=== PATIENT | male | born 1975 | race Two or more races ===

== ENCOUNTER 2024-07-14 08:29 | Outpatient (REF) | payer MEDICAID, SELFPAY ==
--- OUTSIDE RECORDS SUMMARY | 2024-07-14 08:40 | XMS_ITS | Encounter Summary ---
Author Organization [employer] Address [address] [facility] [address] [place] [address] Care Team Providers Care Public Address System Installer Name Role Phone Elmer Mary MD Primary Care Prov ider Reason for Visit * Reason Onset Date Comments Nurse Triage 11/12/2022 Encounter Details Date Type Department Care Team ([facility] st Contact Info) Description 11/12/2022 Telephone [facility] CHC MED & PEDS [address] [place], [place] [phone] Elmer Mary MD [address] [place] [address] Nurse Triage Social History Tobacco Use Types Packs/Day Years Used Date Smoking Tobacco: Never Assessed Sex and Gender Information Value Date Recorded Sex Assigned at Male 03/16/2022 10:29 AM EDT Legal Sex Male 10:29 AM EDT Gender Identity Male 03/16/2022 10:29 AM EDT Sexual Orientation Straight 03/16/2022 10 :29 AM EDT documented as of this encounter Miscellaneous Notes * Telephone Encounter - Flori Hitchcock RN - 11/12/2022 1:52 PM EDT Call to Audie Roberts, reports wanting to have optho referral. Per pt having blurred visionand difficulty with reading. Sx onset was 2 month ago. Per pt having blurred vision with reading aswell as distance. No eye pain, injury, headache or flashes of light. Per pt has never had vision issues in past. Pt advised of disposition, already has upcoming appt with PCP. Pt advised will send referral request to PCP to review. Pt to be contacted if referral placed or if needs to keep appt first. Pt advised to return call if eye pain, double vision or loss of vision. Pt agrees Future Appointments Date Time Provider Department Center 12/07/2022 9:00 AM Elmer Roberts MD [facility] Protocol Used: Vision Loss or Change (Adult) Protocol-Based Disposition: See in Office or Video Visit within 2 Weeks Video visit offer not recorded Positive Triage Question: * Blurred vision or visual changes and gradual onset (e.g., weeks, months) * All higher-acuity triage questions were negative * Telephone Encounter - Darshana Irby - 11/12/2022 1:49 PM EDT Symptom: Vision Loss or Change Outcome: Schedule an urgent appointment (within 1 hour) or talk to a nurse or provider soon Reason: Getting worse, requesting referral The caller accepted this outcome Please contact pt at [phone] (Lithuanian speaker) documented in this encounter Plan of Treatment Upcoming Encounters Date Type Department Care Team (Late st Contact Info) Description 08/02/2024 3:00 PM EDT Office Visit [facility] ADULT DENTAL [address] [place] [address] José Miguel Stahl documented as of this encounter Visit Diagnoses Not on filedocumented in this encounter Care Teams Public Address System Installer Relationship Specialty Start Date End Date Elmer Mary MD [address] [place] [address] PCP - General Internal Medicine 07/28/19 documented as of this encounter
--- OUTSIDE RECORDS SUMMARY | 2024-07-14 08:40 | XMS_ITS | Encounter Summary ---
Author Organization [employer] Address [address] 7[address] [place] [address] Care Team Providers Care Dress Draper Name Role Phone Elmer Mary MD Primary Care Prov ider Encounter Details Date Type Department Care Team (Latest Contact Info) Description 06/15/2024 Travel Social History Tobacco Use Types Packs/Day Years Used Date Smoking Tobacco: Never Passive Smoke Exposure: Never Smokeless Tobacco: Never Alcohol Use Standard Drinks/Week Comments Yes 3 (1 standard drink = 0.6 oz pur e alcohol) Depression Answer Date Recorded Patient Health Questionnaire-9 Score 16 09/01/2023 Patient Health Questionnaire-9 Score 16 09/01/2023 Last PHQ-9: Questionnaire Data Not on file 0 09/01/2023 Housing Stability Answer Date Recorded What is your housing situation today? I have simeon peterson 03/09/[address] you li ve. Do you have problems with any of the following? None of the above 03/09/2023 Food Insecurity Answer Date Recorded Within the past 12 months, y ou worried that your food would run out before you got money to buy more: Never True 03/09/2023 Within the past 12 months,th e food you bought just didn't last and you didn't have enough money to get more: Never True Transportation Answer Date Recorded In the past 12 months, has l ack of transportation kept you from medical appts, meetings, work or from getting things needed for daily living? No 03/09/2023 Utilities Answer Date Recorded In the past 12 months, has t he electric, gas, oil or water company threatened to shut off services in your home? No 03/09/2023 Depression Answer Date Recorded Patient Health Questionnaire-2 Score 4 09/01/2023 Sex and Gender Information Value Date Recorded Sex Assigned at Male 03/16/2022 10:29 AM EDT Legal Sex Male 10:29 AM EDT Gender Identity Male 03/16/2022 10:29 AM EDT Sexual Orientation Straight 03/16/2022 10 :29 AM EDT documented as of this encounter Plan of Treatment Upcoming Encounters Date Type Department Care Team (Late st Contact Info) Description 08/02/2024 3:00 PM EDT Office Visit [facility] ADULT DENTAL [address] [place] [address] José Miguel Stahl documented as of this encounter Visit Diagnoses Not on filedocumented in this encounter Additional Health Concerns Assessment Noted Time PHQ-9 Depression Total Score: 16 024 3:37 PM EDT documented as of this encounter Care Teams Dress Draper Relationship Specialty Start Date End Date Elmer Mary MD [address] [place] [address] PCP - General Internal Medicine 07/28/19 documented as of this encounter
--- OUTSIDE RECORDS SUMMARY | 2024-07-14 08:40 | XMS_ITS | Encounter Summary ---
Author Organization [employer] [facility] Address [address] [place] [address] [address] [address] Care Team Providers Care Health Consultant Name Role Phone Elmer Mary MD Primary Care Prov ider Reason for Referral * Consultation (Routine) - Authorized Specialty Diagnoses / Procedures Referred By Ernesto bedolla Referred To Contact Behavioral Health Diagnoses Anxiety Elmer Mary MD [address] [place] [address] Phone: tel: fax: Referral ID Status Reason Start Date Expiration Date Visits Requested Visits Authorized [id number] Authorized Specialty Services Required 07/13/2024 07/13/2025 1 1 * Consultation (Routine) - Authorized Specialty Diagnoses / Procedures Referred By Ernesto bedolla Referred To Contact Gastroenterology Diagnoses Gastroenteropathy Elmer Mary MD [address] [place] [address] Phone: tel: fax: [facility] [address] [place], [place] Phone: tel: fax: Referral ID Status Reason Start Date Expiration Date Visits Requested Visits Authorized [id number] Authorized Specialty Services Required 07/13/2024 07/13/2025 1 1 Encounter Details Date Type Department Care Team (Late st Contact Info) Description 07/12/2024 3:15 PM EST Telemedicine [facility] CHC MED & PEDS [address] [place] [address] Elmer Mary MD [address] [place] [address] Anxiety (Primary Dx); Major depressive disorder with psychotic features (CMS/HCC); Gastroenteropathy Social History Tobacco Use Types Packs/Day Years Used Date Smoking Tobacco: Never Passive Smoke Exposure: Never Smokeless Tobacco: Never Alcohol Use Standard Drinks/Week Comments Yes 3 (1 standard drink = 0.6 oz pur e alcohol) Depression Answer Date Recorded Patient Health Questionnaire-9 Score 3 07/12/2024 Patient Health Questionnaire-9 Score 3 07/12/2024 Last PHQ-9: Questionnaire Data Not on file 0 07/12/2024 Housing Stability Answer Date Recorded What is your housing situation today? I have simeon peterson 07/12/[address] you li ve. Do you have problems with any of the following? None of the above 07/12/2024 Food Insecurity Answer Date Recorded Within the past 12 months, y ou worried that your food would run out before you got money to buy more: Never True 07/12/2024 Within the past 12 months,th e food you bought just didn't last and you didn't have enough money to get more: Never True Transportation Answer Date Recorded In the past 12 months, has l ack of transportation kept you from medical appts, meetings, work or from getting things needed for daily living? No 07/12/2024 Utilities Answer Date Recorded In the past 12 months, has t he electric, gas, oil or water company threatened to shut off services in your home? No 07/12/2024 Depression Answer Date Recorded Patient Health Questionnaire-2 Score 2 07/12/2024 Internet Access Answer Date Recorded Internet Access Q1 Yes 07/12/2024 Internet Access Q2 Not on file 07/12/2024 Sex and Gender Information Value Date Recorded Sex Assigned at Male 03/16/2022 10:29 AM EDT Legal Sex Male 10:29 AM EDT Gender Identity Male 03/16/2022 10:29 AM EDT Sexual Orientation Straight 03/16/2022 10 :29 AM EDT documented as of this encounter Progress Notes * Elmer Roberts MD - 07/12/2024 3:15 PM EST Subjective Patient ID: Audie Roberts is a 48 y.o. male who presents for No chief complaint on file.. Anxiety Presents for follow-up visit. Symptoms include compulsions, excessive worry, nervous/anxious behavior and obsessions. Patient reports no suicidal ideas. Review of Systems Psychiatric/Behavioral: Negative for suicidal ideas. The patient is nervous/anxious. Objective Physical Exam Neurological: General: No focal deficit present. Mental Status: He is oriented to person, place, and time. Psychiatric: Mood and Affect: Mood normal. Behavior: Behavior normal. Assessment/Plan Problem List Items Addressed This Visit Major depressive disorder with psychotic features (CMS/HCC) Anxiety - Primary Relevant Orders Referral to Behavioral Health Gastroenteropathy Will refer for screening colon cancer Relevant Orders Referral to Gastroenterology CBC auto differential Comprehensive Metabolic Panel Lipid Panel, Standard Hemoglobin A1c TSH W/Reflex to FT4 Hepatitis C Antibody with Reflex to HCV, RNA, Quantitative, Real-Time PCR HIV-1/2 Antigen and Antibodies, Fourth Generation, with Reflexes documented in this encounter Miscellaneous Notes * Assessment & Plan Note - Elmer Roberts MD - 07/13/2024 12:02 PM ESTAssociated Problem(s): Gastroenteropathy Will refer for screening colon cancer documented in this encounter Plan of Treatment Upcoming Encounters Date Type Department Care Team (Late st Contact Info) Description 08/02/2024 3:00 PM EDT Office Visit [facility] ADULT DENTAL [address] [place] [address] José Miguel Stahl Scheduled Orders Name Type Priority Associated Diagnoses Orde r Schedule CBC auto differential Lab Routine Gastroenteropathy Expected: 07/13/2024 (Approximate), Expires: 07/13/2025 Comprehensive Metabolic Panel Lab Routine Gastroenteropathy Expected: 07/13/2024 (Approximate), Expires: 07/13/2025 Lipid Panel, Standard Lab Routine Gastroenteropathy Expected: 07/13/2024 (Approximate), Expires: 07/13/2025 Hemoglobin A1c Lab Routine Gastroenteropathy Expected: 07/13/2024 (Approximate), Expires: 07/13/2025 TSH W/Reflex to FT4 Lab Routine Gastroenteropathy Expected: 07/13/2024 (Approximate), Expires: 07/13/2025 Hepatitis C Antibody with Reflex to HCV, RNA, Quantitative, Real-Time PCR Lab Routine Gastroenteropathy Expected: 07/13/2024, Expires: 07/13/2025 HIV-1/2 Antigen and Antibodies, Fourth Generation, with Reflexes Lab Routine Gastroenteropathy Expected: 07/13/2024 (Approximate), Expires: 07/13/2025 Scheduled Referrals Name Type Priority Associated Diagnoses Order Schedule Referral to Gastroenterology Outpatient Referral Routine Gastroenteropathy Expected: 07/13/2024 (Approximate), Expires: 07/13/2025 Referral to Behavioral Health Outpatient Referral Routine Anxiety Expected: 07/13/2024 (Approximate), Expires: 07/13/2025 documented as of this encounter Visit Diagnoses Diagnosis Anxiety- Primary Anxiety state, unspecified Major depressive disorder with psychotic features (CMS/HCC) Gastroenteropathy Unspecified disorder of intestine documented in this encounter Additional Health Concerns Assessment Noted Time PHQ-9 Depression Total Score: 3 07/12/19 25 3:10 PM EST documented as of this encounter Care Teams Health Consultant Relationship Specialty Start Date End Date Elmer Mary MD [address] [place] [address] PCP - General Internal Medicine 07/28/19 documented as of this encounter
--- OUTSIDE RECORDS SUMMARY | 2024-07-14 08:40 | XMS_ITS | Encounter Summary ---
Author Organization [employer] Address [address] [place] [address] Care Team Providers Care Endoscopy Specialty Technician Name Role Phone Elmer Mary MD Primary Care Prov ider Encounter Details Date Type Department Care Team (Latest Contact Info) Description 07/12/2024 Travel Social History Tobacco Use Types Packs/Day [...] Description 08/02/2024 3:00 PM EDT Office Visit [facility] ADULT DENTAL [address] [place] [address] José Miguel Stahl documented as of this encounter Visit Diagnoses Not on filedocumented in this encounter Additional Health Concerns Assessment Noted Time PHQ-9 Depression Total Score: 3 07/12/19 25 3:10 PM EST documented as of this encounter Care Teams Endoscopy Specialty Technician Relationship Specialty Start Date End Date Elmer Mary MD [address] [place] [address] PCP - General Internal Medicine 07/28/19 documented as of this encounter
--- OUTSIDE RECORDS SUMMARY | 2024-07-14 08:40 | XMS_ITS | Encounter Summary ---
Author Organization [employer] Address [address] [facility] [address] [place] [address] Care Team Providers Care [employer] Open Stack Administrator Name Role Phone Elmer Mary MD Primary Care Prov ider Reason for Visit * Reason Onset Date Comments Insurance 06/15/2024 Encounter Details Date Type Department Care Team ([facility] st Contact Info) Description 06/15/2024 Telephone [facility] CHC MED & PEDS [address] [place], [place] [phone] Elmer Mary MD [address] [place] [address] Insurance Social History Tobacco Use Types Packs/Day Years [...] encounter Miscellaneous Notes * Telephone Encounter - Vita Pelletier [place] - 06/15/2024 1:52 PM EST Called pt for tele appt today with Dr. Hermosillo. Pt didn't answer, lvm to call office back. * Telephone Encounter - Maria De Jesus Damian - 06/15/2024 11:28 AM EST Outgoing call LVM for pt to please return call so FD can add insurance for slava appt today. Please akeni me if pt returns call. documented in this encounter Plan of Treatment Upcoming Encounters Date Type Department Care Team (Late st Contact Info) Description 08/02/2024 3:00 PM EDT Office Visit [facility] ADULT DENTAL [address] [place] [address] José Miguel Stahl documented as of this encounter Visit Diagnoses Not on filedocumented in this encounter Additional Health Concerns Assessment Noted Time PHQ-9 Depression Total Score: 16 024 3:37 PM EDT documented as of this encounter Care Teams [employer] Open Stack Administrator Relationship Specialty Start Date End Date Elmer Mary MD [address] [place] [address] PCP - General Internal Medicine 07/28/19 documented as of this encounter
--- OUTSIDE RECORDS SUMMARY | 2024-07-14 08:40 | XMS_ITS | Encounter Summary ---
Author Organization [employer] Address [address] [facility] [address] [place] [address] Care Team Providers Care Bridge Toll Collector Name Role Phone Elmer Mary MD Primary Care Prov ider Reason for Visit * Reason Onset Date Comments chart prep 06/14/2024 Encounter Details Date Type Department Care Team ([facility] st Contact Info) Description 06/14/2024 Telephone [facility] CHC MED & PEDS [address] [place], [place] [phone] Elmer Mary MD [address] [place] [address] chart prep Social History Tobacco Use Types Packs/Day Years [...] enough money to get more: Never True 10/ Transportation Answer Date Recorded In the past [...] Telephone Encounter - Vita Pelletier [place] - 06/14/2024 11:02 AM EST Chart Prep Labs: done Images: done Vaccines due: yes Referrals: pending appt Screenings: colonoscopy Overdue care gaps: A1C, Glucose, Sbirt, SDOH, PHQ-9 documented in this encounter Plan of Treatment Upcoming Encounters Date Type Department Care Team (Late st Contact Info) Description 08/02/2024 3:00 PM EDT Office Visit [facility] ADULT DENTAL [address] [place] [address] José Miguel Stahl documented as of this encounter Visit Diagnoses Not on filedocumented in this encounter Additional Health Concerns Assessment Noted Time PHQ-9 Depression Total Score: 16 2 024 3:37 PM EDT documented as of this encounter Care Teams Bridge Toll Collector Relationship Specialty Start Date End Date Elmer Mary MD [address] [place] [address] PCP - General Internal Medicine 07/28/19 documented as of this encounter
--- OUTSIDE RECORDS SUMMARY | 2024-07-14 08:40 | XMS_ITS | Clinical Summary ---
Author Organization [employer] Address [address] [place] [address] Care Team Providers Care Bag Machine Adjuster Name Role Phone Elmer Mary MD Primary Care Prov ider Allergies Active Allergy Reactions Criticality Noted Date Comments Sulfa Antibiotics Hives 07/28/2019 Other reaction(s): Itching Medications * This document contains information received from the source organization and may not represent a complete record from that organization. QUEtiapine (SEROquel) 50 MG tablet Take 1 tablet (50 mg) by mouth at bedtime. 30 tablet 1 07/13/19 25 025 Active zolpidem (Ambien) 10 MG tablet Take 1 tablet (10 mg) by mouth if needed at bedtime for sleep. 30 tablet 07/13/19 25 025 Active hydrOXYzine HCl (Atarax) 25 MG tablet Take 1 tablet (25 mg) by mouth if needed in the morning, at noon, and at bedtime for itching. 90 tablet 3 12/10/19 23 025 Discontinued escitalopram (Lexapro) 10 MG tablet Take 1 tablet (10 mg) by mouth in the morning for 7 days, THEN 2 tablets (20 mg) in the morning. 187 tablet 09/01/19 24 025 Discontinued(Th erapy completed) Active Problems Problem Noted Date Diagnosed Date Gastroenteropathy 07/13/2024 Assessment & Plan (07/13/2024 12:02 PM EST): Will refer for screening colon cancer Major depressive disorder with psychotic feature s 12/09/2022 Assessment & Plan (12/14/2022 10:12 AM EDT): Assessment: Audie was engaged with active reflective listening and open-ended questions. Assessed symptoms, risks, and social supports with direct questions. Discussed current symptoms intensity and frequency. Emotions were normalized and validated. He identified working as coping mechanisms and protective factors. Provided psychoeducation around coping skills to manage anxiety and depressive sxs. Discussed OP therapy and Medication Management he agreed to referrals. Provided education around integrated medicine and the options of follow up BE's as needed. Provided contact information should questions or concerns arise. Plan: Audie will engage in effective coping mechanisms provided, he will try them at least 2x/day for 3- 6 months to developed the skills. He will be referred for Ind. Therapy and Medication Management. Patient with lack of motivation, hopelessness, insomnia, low self-esteem, trouble with concentration, restlessness, passive thought w/o plan or intention, feeling on edge, persistent worry, unable to relax, irritability, visual hallucinations w/o commands. He denies SI, HI, or self-harm at this time. He lives alone, currently working weekends 12 hrs per day at [employer], starting a new job in a [employer] on 12/25/22. Moved from [place] on 2012. Reported has family here but they don't speak at the moment. Brother by overdose on 1987, Hx of legal issues in the past. Patient will benefit from Ind. Therapy and Medication management. At this time Audie Roberts meets criteria for Visit Diagnoses: Problem List Items Addressed This Visit Other Major depressive disorder with psychotic features (CMS/HCC) Patient ready to address current needs Yes Strengths include willing to seek treatment PLAN: 1. Follow up with [facility]: Not recommended for follow-up 2. Patient goal is to engage in MH services 3. Behavioral Recommendations a. Ind. Therapy b. Med. Management c. Use of coping skills at least 2x/day for 6 months Assessment & Plan (12/09/2022 10:13 AM EDT): Phq-09 score 22 pts, denied active suicidal/homicidal ideas, but had them about 2 weeks ago, refers symptoms started about 6 weeks ago, refers about 4-5 years ago he was under psych care and was taking alprazolam and seroquel. Since stopping them 4-5 years ago has been stable. Will refer to therapist and will follow up in 4 weeks. Anxiety 12/09/2022 Assessment & Plan (12/02/2023 7:12 AM EDT): No suicidal/homicidal ideas, will start on lexapro, continue hydroxyzine as needed, continue therapist follow up Assessment & Plan (12/14/2022 10:13 AM EDT): Assessment: Audie was engaged with active reflective listening and open-ended questions. Assessed symptoms, risks, and social supports with direct questions. Discussed current symptoms intensity and frequency. Emotions were normalized and validated. He identified working as coping mechanisms and protective factors. Provided psychoeducation around coping skills to manage anxiety and depressive sxs. Discussed OP therapy and Medication Management he agreed to referrals. Provided education around integrated medicine and the options of follow up BE's as needed. Provided contact information should questions or concerns arise. Plan: Audie will engage in effective coping mechanisms provided, he will try them at least 2x/day for 3- 6 months to developed the skills. He will be referred for Ind. Therapy and Medication Management. Patient with lack of motivation, hopelessness, insomnia, low self-esteem, trouble with concentration, restlessness, passive thought w/o plan or intention, feeling on edge, persistent worry, unable to relax, irritability, visual hallucinations w/o commands. He denies SI, HI, or self-harm at this time. He lives alone, currently working weekends 12 hrs per day at [employer], starting a new job in a [employer] on 12/25/22. Moved from [place] on 2012. Reported has family here but they don't speak at the moment. Brother by overdose on 1987, Hx of legal issues in the past. Patient will benefit from Ind. Therapy and Medication management. At this time Audie Roberts meets criteria for Visit Diagnoses: Problem List Items Addressed This Visit Other Major depressive disorder with psychotic features (CMS/HCC) Patient ready to address current needs Yes Strengths include willing to seek treatment PLAN: 1. Follow up with [facility]: Not recommended for follow-up 2. Patient goal is to engage in MH services 3. Behavioral Recommendations a. Ind. Therapy b. Med. Management c. Use of coping skills at least 2x/day for 6 months Assessment & Plan (12/09/2022 10:13 AM EDT): Will provide hydroxyzine for acute anxiety episodes Prediabetes 11/29/2022 Assessment & Plan (11/29/2022 2:01 PM EDT): Lab Results Component Value Date HGBA1C 5.9 11/24/2022 Encouraged lifestyle interventions including Carb awareness and routine physical activity Encounters Date Type Department Care Team Description 07/12/2024 3:15 PM EST Telemedicine [facility] MED & PEDS [address] [place] [address] Elmer Mary MD Anxiety (Primary Dx); Major depressive disorder with psychotic features (CMS/HCC); Gastroenteropathy 07/12/2024 Travel 07/11/2024 Telephone [facility] [address] [place] [address] Elmer Mary MD chart prep 06/15/2024 Telephone [facility] [address] [place] [address] Elmer Mary MD No Show 06/15/2024 Telephone [facility] [address] [place] [address] Elmer Mary MD Insurance 06/15/2024 Travel 06/14/2024 Telephone [facility] [address] [place] [address] Elmer Mary MD chart prep from Last 3 Months Social History Tobacco Use Types Packs/Day Years Used Date Smoking Tobacco: Never Passive Smoke Exposure: Never Smokeless Tobacco: Never Tobacco Cessation:Counseling Given: Not Answered Alcohol Use Standard Drinks/Week Comments Yes 3 [...] Orientation Straight 03/16/2022 10 :29 AM EDT Last Filed Vital Signs Vital Sign Reading Time Taken Comments Blood Pressure 100/60 07/12/2023 2:10 PM EST Pulse 65 07/12/2023 2:10 PM EST Temperature 36.8 ??C (98.2 ??F) 11/24/2022 10:21 AM E DT Respiratory Rate 18 11/24/2022 10:21 AM EDT Oxygen Saturation 96% 11/24/2022 10:21 AM EDT Inhaled Oxygen Concentration - - Weight 90.1 kg (198 lb 9.6 oz) 11/24/2022 10:21 AM EDT Height 185.4 cm (6' 1 ) 11/24/2022 10:21 AM EDT Body Mass Index 26.2 11/24/2022 10:21 AM EDT Plan of Treatment Upcoming Encounters Date Type Department Care Team (Late st Contact Info) Description 08/02/2024 3:00 PM EDT Office Visit [facility] ADULT D[facility]AL [address] [place] [address] José Miguel Stahl Health Maintenance Due Date Last Done Comments CT Colonography 1976 Colonoscopy 1976 Colorectal Cancer Screening 1976 FIT DNA/Cologuard 1976 FIT 1976 FOBT 1976 Sigmoidoscopy 1976 Family Planning (PISQ) 10/30/1991 Hepatitis B Vaccines (1 of 3 - 19+ 3-dose series) 10/30/1995 Diabetes: Hemoglobin A1C 11/25/2023 023, 10/01/2021, 02/12/2021, Additional history exists Dental X-Ray: Bitewings 12/16/2023 12/14/2022, 09/25 Dental Oral Exam 01/11/2024 07/12/2023, , 09/25/2021 Dental Prophylaxis 01/11/2024 07/12/2023, 0 12/14/2022, 10/09/2021 COVID-19 Vaccine ( season) 2024 01/18/2021, 12/28/2020 Influenza Vaccine (#1) 2024 07/28/2019 Tobacco Screening 07/12/2024 07/12/2023 Dental X-Ray: Full Mouth 09/26/2024 09/25/2021 DTaP/Tdap/Td Vaccines (2 - Td or Tdap) 06/24/2025 06/24/2015 Alcohol/Substance Use Screening 07/12/2025 07/12/2024 Depression Screening 07/12/2025 07/12/2024, 07/12/19 25 SDOH Screening 07/12/2025 07/12/2024 Lipid Panel 10/01/2026 10/01/2021, 02/12/2021 Zoster Vaccines (1 of 2) 2026 RSV Patients and Patients Aged 60 years or older (1 - 1-dose 75+ series) 10/30/2051 HIV Screening Completed 07/28/2019 Hepatitis C Screening Completed 10/01/2021 HIB Vaccines Aged Out No longer eligi ble based on patient's age to complete this topic HPV Vaccines Aged Out No longer eligi ble based on patient's age to complete this topic Hepatitis A Vaccines Aged Out No long er eligible based on patient's age to complete this topic IPV Vaccines Aged Out No longer eligi ble based on patient's age to complete this topic Meningococcal Vaccine Aged Out No ismael canelo eligible based on patient's age to complete this topic Pneumococcal Vaccine: Pediatrics (0 to 5 Years) and At-Risk Patients (6 to 49) Years) Aged Out No longer eligible based on patient's age to complete this topic RSV under 20 months Aged Out No longe r eligible based on patient's age to complete this topic Rotavirus Vaccines Aged Out No longer eligible based on patient's age to complete this topic Procedures Procedure Name Priority Date/Time Associated Diagnosis Comments Full PROPHYLAXIS - ADULT Routine 07/12/2023 2:00 PM EST PERIODIC ORAL EVALUATION - ESTABLISHED PATIENT Routine 07/12/2023 2:00 PM EST BITEWINGS - 4 RADIOGRAPHIC IMAGES Routine 12/14/2022 8:00 AM EDT POCT GLYCOSYLATED HEMOGLOBIN (HGB A1C) Routine 11/24/2022 11:04 AM EDT Prediabetes ZZZ HISTORICAL HEPATITIS C AB W/REFL TO HCV RNA, QN, PCR Routine 10/01/2021 12:20 PM EDT LIPID PANEL, STANDARD Routine 10/01/2021 12:20 PM EDT INTRAORAL - COMPLETE SERIES OF RADIOGRAPHIC IMAGES Routine 09/25/2021 12:00 AM EDT ZZZ HISTORICAL HIV AB/AG Routine 07/28/2019 10:11 AM EDT from Last 3 Months or Most Recently Relevant to Health Maintenance Results * POCT glycosylated hemoglobin (Hgb A1c) (11/24/2022 11:04 AM EDT) Hemoglobin A1C 5.9 4.0 - 6.0 % Blood Capillary blood specimen / Unknown 11/24/2022 11:04 AM EDT us Ronda Sheridan FORESTRY PROFESSOR POINT OF CARE TEST ENTER/EDIT ORDERABLES Final Result * HEPATITIS C AB W/REFL TO HCV RNA, QN, PCR (10/01/2021 12:20 PM EDT) HEPATITIS C ANTIBODY NON-REACT EULALIA NON-REACT EULALIA [facility] INDEX 0.05 <1.00 [facility] Comment: ?? HCV antibody was non-reactive. There is no laboratory ?? evidence of HCV infection. ?? In most cases, no further action is required. However, if recent HCV exposure is suspected, a test for HCV RNA (test code 01378) is suggested. ?? For additional information please refer to http://[employer]/faq/OZT97p2 (This link is being provided for informational/ educational purposes only.) ?? 10/01/2021 12:2 0 PM EDT Elmer Roberts MD HISTORICAL/NON ORD ERABLE LABS Final Result [facility] [address] * LIPID PANEL, STANDARD (10/01/2021 12:20 PM EDT) Chol/HDLC Ratio 2.8 <5.0 (calc) [facility] Cholesterol, Total 165 <200 mg/dL [facility] HDL Cholesterol 58 > OR = 40 mg/dL [facility] LDL Cholesterol 89 mg/dL (calc) [facility] Comment: Reference range: <100 ?? Desirable range <100 mg/dL for primary prevention; ?? <70 mg/dL for patients with CHD or diabetic patients ?? with > or = 2 CHD risk factors. ?? LDL-C is now calculated using the Angel ?? calculation, which is a validated novel method providing ?? better accuracy than the Friedewald equation in the ?? estimation of LDL-C. ?? Linwood GIRALDO et al. ELIJAH. 2013;310(19): 5036-1528 ?? (http://[employer]/faq/ZHU057) Non-HDL Cholesterol 107 <130 mg/dL (calc) [facility] Comment: For patients with diabetes plus 1 major ASCVD risk ?? factor, treating to a non-HDL-C goal of <100 mg/dL ?? (LDL-C of <70 mg/dL) is considered a therapeutic ?? option. Triglycerides 88 <150 mg/dL [facility] 10/01/2021 12:2 0 PM EDT Elmer Roberts MD LAB BLOOD ORDERABL ES Final Result Performing Organization Address [facility] de Phone Number [facility] [address] * HIV AB/AG (07/28/2019 10:11 AM EDT) [facility] HIV AG/AB NONREACTIVE NR [facility] Comment: HIV-1 p24 Ag and/or HIV-1/HIV-2 Ab not detected. ?? A test result that is nonreactive does not exclude the possibility of exposure to or infection with HIV-1 and/or HIV-2. Nonreactive results in this assay for individuals with prior exposure to HIV-1 and/or HIV-2 may be due to antigen and antibody levels that are below the limit of detection of this assay. ?? The [employer] HIV Ag/Ab Combo assay result and supplemental assay results should be interpreted in conjunction with the patient's clinical presentation, history and other laboratory results. ??If the results are inconsistent with clinical evidence, additional testing is suggested to confirm the result. 07/28/2019 10:1 1 AM EDT Elmer Roberts MD HISTORICAL/NON ORD ERABLE LABS Final Result Performing Organization Address [facility] Co de Phone Number [facility] [address] from Last 3 Months or Most Recently [place] [address] [employer] DENTAL - [place] Care Teams Bag Machine Adjuster Relationship Specialty Start Date End Date Elmer Mary MD [address] [place] [id number] PCP - General Internal Medicine 07/28/19
--- OUTSIDE RECORDS SUMMARY | 2024-07-14 08:40 | XMS_ITS | Encounter Summary ---
Author Organization [employer] Address [address] [place] [address] Care Team Providers Care Central Communications Specialist Name Role Phone Elmer Mary MD Primary Care Prov ider Reason for Visit * Reason Onset Date Comments chart prep 07/11/2024 Encounter Details Date Type Department Care Team ([facility] st Contact Info) Description 07/11/2024 Telephone [facility] & [facility]EDS [address] [place], [place] [phone] Elmer Mary MD [address] [place] [address] chart prep Social History Tobacco Use Types [...] enough money to get more: Never True 02/ Transportation Answer Date Recorded In the past [...] Telephone Encounter - Vita Pelletier [place] - 07/11/2024 4:35 PM EST Chart Prep Labs: done Images: done Vaccines due: yes Referrals: complete Screenings: colonoscopy Overdue care gaps: A1C, Glucose, Sbirt, SDOH, PHQ-9 documented in this encounter Plan of Treatment Upcoming Encounters Date Type Department Care Team (Late st Contact Info) Description 08/02/2024 3:00 PM EDT Office Visit [facility] ADULT DENTAL [address] [place] [address] José Miguel Stahl documented as of this encounter Visit Diagnoses Not on filedocumented in this encounter Additional Health Concerns Assessment Noted Time PHQ-9 Depression Total Score: 16 04/17/2 024 3:37 PM EDT documented as of this encounter Care Teams Central Communications Specialist Relationship Specialty Start Date End Date Elmer Mary MD [address] [place] [address] PCP - General Internal Medicine 07/28/19 documented as of this encounter
--- OUTSIDE RECORDS SUMMARY | 2024-07-14 08:40 | XMS_ITS | Encounter Summary ---
Author Organization [employer] [facility] Address [address] [place] [address] [address] [place] [address] Care Team Providers Care Server Service Assistant Name Role Phone Elmer aMry MD Primary Care Prov ider Encounter Details Date Type Department Care Team (Latest Contact Info) Description 10/08/2021 Abstract [facility] CONVERSIONS Dental, Provider, DDS Social History Tobacco Use Types Packs/Day Years [...] Upcoming Encounters Date Type Department Care Team ( st Contact Info) Description 08/02/2024 3:00 PM EDT Office Visit [facility] ADULT DENTAL [address] [place] [address] José Miguel Stahl documented as of this encounter Visit Diagnoses Not on filedocumented in this encounter Care Teams Server Service Assistant Relationship Specialty Start Date End Date Elmer Mary MD [address] [place] [address] PCP - General Internal Medicine 07/28/19 documented as of this encounter
--- OUTSIDE RECORDS SUMMARY | 2024-07-14 08:40 | XMS_ITS | Encounter Summary ---
Author Organization [employer] Address [address] [place] [address] Care Team Providers Care Chicken And Fish Butcher Name Role Phone Elmer Mary MD Primary Care Prov ider Reason for Visit * Reason Onset Date Comments No Show 06/15/2024 Encounter Details Date Type Department Care Team ([facility] st Contact Info) Description 06/15/2024 Telephone [facility] MED & PEDS [address] [place], [place] [phone] Elmer Mary MD [address] [place] [address] No Show Social History Tobacco Use Types Packs/Day Years [...] encounter Miscellaneous Notes * Telephone Encounter - Gerson Lal - 06/15/2024 2:19 PM EST 06/15/24 no show for fu multiple condition documented in this encounter Plan of Treatment Upcoming Encounters Date Type Department Care Team (Late st Contact Info) Description 08/02/2024 3:00 PM EDT Office Visit [facility] AD[facility] [address] [place] [address] José Miguel Stahl documented as of this encounter Visit Diagnoses Not on filedocumented in this encounter Additional Health Concerns Assessment Noted Time PHQ-9 Depression Total Score: 16 024 3:37 PM EDT documented as of this encounter Care Teams Chicken And Fish Butcher Relationship Specialty Start Date End Date Elmer Mary MD [address] [place] [address] PCP - General Internal Medicine 07/28/19 documented as of this encounter
[2024-07-14 14:42] LABS: MANUAL DIFF FLAG NO
[2024-07-14 14:47] LABS: Basophils Absolute Auto 0.1 X10*3/uL (0.0-0.2); Basophils Percent Auto 1.4 % (0-2); Eosinophils Absolute Auto 0.2 X10*3/uL (0.0-0.4); Hematocrit 50.4 % (42.0-52.0); Hemoglobin 16.5 g/dl (14.0-18.0); Imm Gran Abs Auto 0.01 X10*3/uL (0.00-0.03); Imm Gran Pct Auto 0.2 % (0.0-0.4); Lymphocytes Absolute Auto 1.7 X10*3/uL (1.2-4.9); Lymphocytes Percent Auto 34.4 % (20-40); Mean Corpuscular HGB Conc 32.7 g/dl (31.0-36.0); Mean Corpuscular Hemoglobin 28.5 pg (27.0-33.0); Mean Platelet Volume 11.3 fL (9.4-12.4); Monocytes Absolute Auto 0.5 X10*3/uL (0.1-1.2); Monocytes Percent Auto 9.3 % (2-11); Neutrophils Absolute Auto 2.4 x10*3/uL (2.0-8.3); Neutrophils Percent Auto 49.7 % (45-73); Platelet Count 181 X10*3/uL (160-400); Red Blood Count 5.79 X10*6/uL (4.60-5.80); Red Cell Distribution Width 13.7 % (11.0-16.0); White Blood Count 4.8 X10*3/uL (4.8-10.8)
[2024-07-14 14:55] LABS: Estimated Average Glucose 120 mg/dL; Hemoglobin A1C 169.7086 umol/L; Hemoglobin A1c % 5.8 % (<6.0); Total Hemoglobin (HGBA1C) 4241.4713 umol/L
[2024-07-14 16:29] LABS: Alanine Aminotransferase 37 U/L (0-40); Albumin Level 4.4 g/dL (3.5-5.0); Anion Gap 12 (12-20); Aspartate Amino Transferase 29 U/L (5-37); Blood Urea Nitrogen 16 mg/dL (9-16); Calcium 9.6 mg/dL (8.4-10.2); Carbon Dioxide 27 mmol/L (22-29); Chloride 108 mmol/L (96-108); Cholesterol 136 mg/dL (<200); Estimated Glomerular Filt Rate > 60; Glucose Random 110 mg/dL (60-115); HDL Cholesterol 52 mg/dL (>40); LDL Cholesterol Calculated 76 mg/dL (<100); Potassium 4.5 mmol/L (3.3-5.1); Sodium 142 mmol/L (135-145); Triglycerides 43 mg/dL (<150)
[2024-07-14 16:46] LABS: TSH reflex Free T4 1.78 uIU/mL (0.32-4.0)
[2024-07-14 17:54] LABS: Alkaline Phosphatase 50 U/L (39-117)
[2024-07-17 08:54] LABS: HIV AB/AG Nonreactive (Nonreactive); HIV Num 1 0.04 S/CO (0.00-0.99); ~HepC Num1 0.09 S/CO (0.00-0.79); ~Hepatitis C Antibody Nonreactive (Nonreactive)
== END 2024-07-14 08:30 | disposition home or self-care (01) ==
LOC: HO.CHCLDS 08:29
PROVIDERS: Visit Provider Internal Medicine
DX: K52.9 Noninfective gastroenteritis and colitis, unspecified (principal)
CPT/HCPCS: 36415; 80053; 80061; 83036; 84443; 85025; 86803; 87389